=== PATIENT | male | born 1980 | race Caucasian/White ===

== ENCOUNTER 2022-06-23 14:51 | Outpatient (CLI) | payer OTHER, SELFPAY ==
[2022-06-23 18:47] LABS: TSH With Reflex to FT4* 0.783 uIU/mL (0.270-4.200)
== END 2022-06-23 14:52 | disposition home or self-care (01) ==
PROVIDERS: PCP Emergency Medicine; Visit Provider Emergency Medicine
DX: Z00.00 Encounter for general adult medical examination without abnormal findings (principal); R63.4 Abnormal weight loss; E11.9 Type 2 diabetes mellitus without complications
CPT/HCPCS: 84443

== ENCOUNTER 2023-05-11 08:46 | Outpatient (CLI) | payer OTHER, SELFPAY | END 2023-05-11 08:47 | disposition home or self-care (01) | LOC: NFLDREF 22:35 | PROVIDERS: PCP Emergency Medicine; Referring Provider Emergency Medicine; Visit Provider Emergency Medicine | DX: Z00.00 Encounter for general adult medical examination without abnormal findings (principal); E10.9 Type 1 diabetes mellitus without complications | CPT/HCPCS: 80053; 80061; 82043; 82570 ==

== ENCOUNTER 2024-05-09 08:39 | Outpatient (CLI) | payer OTHER, SELFPAY ==
--- OUTSIDE RECORDS SUMMARY | 2024-05-09 08:42 | XMS_ITS | Encounter Summary ---
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
--- OUTSIDE RECORDS SUMMARY | 2024-05-09 08:42 | XMS_ITS | Encounter Summary ---
Author Organization [facility] [employer] [facility] Address [address] [address] Phone Care Team Providers Care Lug Breaker And Wire Puller Name Role Phone Elsewhere, Pcp Primary Care Provider Unavailabl e Encounter Details Date Type Department Care Team (Late st Contact Info) Description 03/07/2024 Scanned - Medical Reports [facility] [address] [place] [id number] Abstract, Provider, Social History Tobacco Use Types Packs/Day Years Used Date Smoking Tobacco: Former Cigarettes Smokeless Tobacco: Never Sex and Gender Information Value Date Recorded Sex Assigned at Not on file 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 Gender Identity Not on file Sexual Orientation Not on file documented as of this encounter Plan of Treatment Not on file documented as of this encounter Procedures Procedure Name Priority Date/Time Associated Diagnosis Comments EYE EXAM ESTABLISHED PATIENT COMPREHENSIVE Routine 03/01/2024 2:17 PM CDT documented in this encounter Results * EYE EXAM ESTABLISHED PATIENT COMPREHENSIVE (03/01/2024 2:17 PM CDT) us Provider Abstract EC PROCEDURES Final Resul t documented in this encounter Visit Diagnoses Not on filedocumented in this encounter Care Teams Lug Breaker And Wire Puller Relationship Specialty Start Date End Date Elsewhere, Pcp PCP - General 03/01/24 documented as of this encounter
--- OUTSIDE RECORDS SUMMARY | 2024-05-09 08:42 | XMS_ITS | Clinical Summary ---
Author Organization [facility] Address [address], [place] [address] Care Team Providers Care Kettle Girl Name Role Phone Allie Guaman PA-C Primary Care Provider [phone] Source Comments You are receiving this document as you are listed as the primary care provider,follow-up provider, or the patient has been referred to you for consultation.This is in compliance with the Medicare and[facility] Hospital[facility] EHR Incentive Program,which states Providers who transition their patient to another setting of careor provider of care or refers their patient to another provider of care shouldprovide summary care record for each transition of care or referral. [facility] Allergies No known active allergies Medications Medication Sig Dispensed Refills Start Date End Date Status hydrOXYzine pamoate (VISTARIL) 25 MG capsuleIndications:I nsomnia, unspecified type 1-2 tabs po qhs prn insomnia 60 Cap 1 06/29/2017 Active Additional Information Patient not taking.Reported on 07/31/2018 Active Problems Problem Noted Date Diagnosed Date Insomnia 06/29/2017 Immunizations Name Administration Dates Next Due Tdap 10/14/2013 Family History Medical History Relation Name Comments High Cholesterol Father No Known Problems Mother No Known Problems Brother 1 No Known Problems Brother 2 No Known Problems Brother 3 Diabetes Brother 4 Type 1. Cancer Maternal Grandmother Not efe e what kind, late 50s. Diabetes Paternal Grandfather Atrial Fib Paternal Grandmother No Known Problems Sister Relation Name Status Comments Father Alive Mother Alive Brother 1 Alive Brother 2 Alive Brother 3 Alive Brother 4 Alive Maternal Grandfather Maternal Grandmother Paternal Grandfather Paternal Grandmother Alive Sister Alive Social History Tobacco Use Types Packs/Day Years Used Date Smoking Tobacco: Never Smokeless Tobacco: Never Alcohol Use Standard Drinks/Week Comments Yes 2 (1 standard drink = 0.6 oz pur e alcohol) 2-3 per week Sex and Gender Information Value Date Recorded Sex Assigned at Not on file Gender Identity Not on file Sexual Orientation Not on file Last Filed Vital Signs Vital Sign Reading Time Taken Comments Blood Pressure 123/75 12/02/2020 9:14 AM CDT Pulse 58 12/02/2020 9:14 AM CDT Temperature 36.6 ??C (97.9 ??F) 12/02/2020 9:14 AM CD T Respiratory Rate 14 12/02/2020 9:14 AM CDT Oxygen Saturation 98% 12/02/2020 9:14 AM CDT Inhaled Oxygen Concentration - - Weight 93.3 kg (205 lb 9.6 oz) 07/31/2018 2:58 P M MANAGER PROPERTY Height 180.3 cm (5' 11) 07/31/2018 2:58 PM MANAGER PROPERTY Body Mass Index 28.68 07/31/2018 2:58 PM MANAGER PROPERTY Plan of Treatment Health Maintenance Due Date Last Done Comments Hep C Screening (Preventive Services) 1982 HepB (1) 2001 Adult Preventive Visit 06/29/2019 06/29/2017 Cholesterol 06/29/2022 06/29/2017, 10/26/2006, 10/03/2006 DTaP/Tdap/Td (2 - Tdap) 10/15/2023 10/14/2013 COVID-19 Vaccine (3 - 2023-2 5 season) 2024 11/20/2020, 10/23/2020 Influenza (#1) 2024 Zoster/Shingles (1 of 2) 2032 HIV Screening (Preventive Services) Completed 06/29/2017 HPV Vaccine Aged Out No longer eligi ble based on patient's age to complete this topic HepA Aged Out No longer eligi ble based on patient's age to complete this topic Hib Aged Out No longer eligi ble based on patient's age to complete this topic IPV (Polio) Aged Out No longer eligi ble based on patient's age to complete this topic Infant RSV Aged Out No longer eligi ble based on patient's age to complete this topic MCV4 Aged Out No longer eligi ble based on patient's age to complete this topic Pneumococcal Aged Out No longer eligi ble based on patient's age to complete this topic Procedures Procedure Name Priority Date/Time Associated Diagnosis Comments HIV 1/2 AG/AB 4TH GEN Routine 06/29/2017 12:16 PM MANAGER PROPERTY Screening for HIV (human immunodeficiency virus) LIPID PANEL & DIRECT LDL (IF NEEDED) Routine 06/29/2017 12:16 PM MANAGER PROPERTY Encounter for screening for lipoid disorders from Last 3 Months or Most Recently Relevant to Health Maintenance Results * HIV 1/2 Ag/Ab 4th Generation (06/29/2017 12:16 PM MANAGER PROPERTY) HIV-1 p24 Ag and HIV-1/HIV-2 Ab Nonreactive Nonreactive PN SOFT 06/29/2017 12:1 6 PM MANAGER PROPERTY 06/29/2017 3:22 PM MANAGER PROPERTY Narrative PN SOFT - 06/29/2017 3:54 PM MANAGER PROPERTY [place] [address] CLIA number [id number] Allie Guaman PA-C LAB_[address] [place] [id number] * (ABNORMAL) Lipid Panel and Direct LDL(If Needed) (06/29/2017 12:16 PM MANAGER PROPERTY) Cholesterol 252(H) 0 - 199 mg/dL PN SOFT Triglycerides 315(H) 4 - 149 mg/dL PN SOFT HDL Cholesterol 49 >39 mg/dL PN SOFT Cholesterol/HDL Ratio Screen 5.1 PN SOFT LDL Calculated 140(H) 19 - 130 mg/dL PN SOFT Non HDL Chol, Calc 203(H) 0 - 130 mg/dL PN SOFT Hours Fasting 3.0 PN SOFT 06/29/2017 12:1 6 PM MANAGER PROPERTY 06/29/2017 2:37 PM MANAGER PROPERTY Narrative PN SOFT - 06/29/2017 4:09 PM MANAGER PROPERTY Performed at [facility] [id number] [place] [address] CLIA number [id number] Allie Guaman PA-C LAB_1 PN SOFT [address] [place] [address] from Last 3 Months or Most Recently Relevant to Health Maintenance Advance Directives * Full Code (Latest Code Status on File) Date Activated Date Inactivated Comments 10/03/2006 9:09 PM 10/08/2006 2:24 PM Care Teams Kettle Girl Relationship Specialty Start Date End Date Allie Guaman PA-C [address] [place] [address] PCP - General Physician Cone Worker 06/01/17
--- OUTSIDE RECORDS SUMMARY | 2024-05-09 08:42 | XMS_ITS | Encounter Summary ---
Author Organization [facility] Address [address] [address] Phone Care Team Providers Care Logistic Specialist Name Role Phone Elsewhere, Pcp Primary Care Provider Unavailabl e Reason for Visit * Reason Comments Refill Request Encounter Details Date Type Department Care Team (Late st Contact Info) Description 04/07/2024 Refill [facility] ENDOCRINOLOGY [address] [phone] Jb Van MD [address] [phone] Refill Request Social History Tobacco Use Types Packs/Day Years Used Date Smoking Tobacco: Former Cigarettes Smokeless Tobacco: Never Sex and Gender Information Value Date Recorded Sex Assigned at Not on file 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 Misc four times a day. Accu-Chek soft click lancets 100 Each 3 04/08/2024 Glucagon (Baqsimi Two Pack) 3 MG/DOSE PowderIndications: Type 1 diabetes mellitus on insulin therapy (HCC) Instill 1 Otis nasally as needed (hypoglycemia ). 2 Each 3 04/08/2024 ketone - urine test (Ketostix) stripIndications:T ype 1 diabetes mellitus on insulin therapy (HCC) Use to test urine for ketones when not feeling well 100 Strip 2 04/08/2024 insulin lispro, 1 Unit Dial, (HumaLOG KwikPen) 100 UNIT/ML pen injectionIndicatio ns:Type 1 diabetes mellitus on insulin therapy (HCC) INJECT PER SLIDING SCALE AT MEAL TIME DIRECTED, MAXIMUM OF 25 UNITS PER DAYStrength: 100 UNIT/ML 15 mL 3 04/08/2024 4 insulin lispro, 1 Unit Dial, (HumaLOG KwikPen) 100 UNIT/ML pen injectionIndicatio ns:Type 1 diabetes mellitus on insulin therapy (HCC) INJECT PER SLIDING SCALE AT MEAL TIME DIRECTED, MAXIMUM OF 25 UNITS PER DAY 15 mL 04/08/2024 4 documented in this encounter Miscellaneous Notes * Addendum Note - Sascha Hong RN - 04/08/2024 9:33 AM CDTAddended by: SASCHA HONG on: 04/08/2024 09:33 AM Modules accepted: Orders * Telephone Encounter - Sascha Hong RN - 04/08/2024 9:26 AM CDT Patient's calling to request refills. documented in this encounter Plan of Treatment Not on file documented as of this encounter Visit Diagnoses Diagnosis Type 1 diabetes mellitus on insulin therapy (HCC) documented in this encounter Discontinued Medications Medication Sig Discontinue Reason Start Date End Da te insulin lispro, 1 Unit Dial, (HumaLOG KwikPen) 100 UNIT/ML pen injectionIndications:Ty pe 1 diabetes mellitus on insulin therapy (HCC) Inject 1 unit per 13 grams of carb plus 1 unit for every 50 points above 150 mg/dL. Up to 25 units per day. 08/08/2023 04/08/2024 Accu-Chek GuideIndications:Type 1 diabetes mellitus on insulin therapy (HCC) Use to check blood sugar 4 times per day Adjustment of dose 03/01/2024 04/08/2024 Blood Glucose Monitoring Suppl (Accu-Chek Guide Me) w/Device Kit USE TO TEST BLOOD GLUCOSE LEVELS FOUR TIMES DAILY. Patient quit taking 07/01/2022 04/08/2024 Continuous Blood Gluc Transmit (Dexcom G6 Transmitter) MiscIndications:Type 1 diabetes mellitus on insulin therapy (HCC) USE 1 DEVICE EVERY 3 MONTHS. Adjustment of dose 09/27/2023 04/08/2024 Continuous Blood Gluc Sensor (Dexcom G6 Sensor) MiscIndications:Type 1 diabetes mellitus on insulin therapy (HCC) 1 DEVICE EVERY TEN DAYS. Adjustment of dose 05/30/2023 04/08/2024 Glucagon (Baqsimi Two Pack) 3 MG/DOSE PowderIndications:Type 1 diabetes mellitus on insulin therapy (HCC) Instill 1 Otis nasally as needed (hypoglycemia). Reorder 07/08/2022 04/08/2024 ketone - urine test (Ketostix) stripIndications:Type 1 diabetes mellitus on insulin therapy (HCC) Use to test urine for ketones when not feeling well Reorder 07/08/2022 04/08/2024 insulin lispro, 1 Unit Dial, (HumaLOG KwikPen) 100 UNIT/ML pen injectionIndications:Ty pe 1 diabetes mellitus on insulin therapy (HCC) INJECT PER SLIDING SCALE AT MEAL TIME DIRECTED, MAXIMUM OF 25 UNITS PER DAY 04/08/2024 04/08/2024 documented as of this encounter Care Teams Logistic Specialist Relationship Specialty Start Date End Date Elsewhere, Pcp PCP - General 03/01/24 documented as of this encounter
--- OUTSIDE RECORDS SUMMARY | 2024-05-09 08:42 | XMS_ITS | Encounter Summary ---
Author Organization [facility] [employer] [facility] Address [address] [address] Phone Care Team Providers Care Conveyor Attendant Name Role Phone Elsewhere, Pcp Primary Care Provider Unavailabl e Reason for Visit * Reason Comments Refill Request Encounter Details Date Type Department Care Team (Late st Contact Info) Description 04/29/2024 Refill [facility] ENDOCRINOLOGY [address] [phone] Jb Van MD [address] [phone] Refill Request Social History Tobacco Use Types Packs/Day Years Used Date Smoking Tobacco: Former Cigarettes Smokeless Tobacco: Never Sex and Gender Information Value Date Recorded Sex Assigned at Not on file 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 Gender Identity Not on file Sexual Orientation Not on file documented as of this encounter Ordered Prescriptions Prescription Sig Dispense Quantity Refills Last Filled Start Date End Date insulin lispro, 1 Unit Dial, (HumaLOG KwikPen) 100 UNIT/ML pen injectionIndicatio ns:Type 1 diabetes mellitus on insulin therapy (HCC) INJECT PER SLIDING SCALE AT MEAL TIME DIRECTED, MAXIMUM OF 25 UNITS PER DAY 15 mL 3 04/29/2024 documented in this encounter Plan of Treatment Not on file documented as of this encounter Visit Diagnoses Diagnosis Type 1 diabetes mellitus on insulin therapy (HCC) documented in this encounter Discontinued Medications Medication Sig Discontinue Reason Start Date End Da te insulin lispro, 1 Unit Dial, (HumaLOG KwikPen) 100 UNIT/ML pen injectionIndications:Typ e 1 diabetes mellitus on insulin therapy (HCC) INJECT PER SLIDING SCALE AT MEAL TIME DIRECTED, MAXIMUM OF 25 UNITS PER DAYStrength: 100 UNIT/ML 04/08/2024 04/29/2024 documented as of this encounter Care Teams Conveyor Attendant Relationship Specialty Start Date End Date Elsewhere, Pcp PCP - General 03/01/24 documented as of this encounter
--- OUTSIDE RECORDS SUMMARY | 2024-05-09 08:42 | XMS_ITS | Clinical Summary ---
Author Organization [facility] Address [address] [address] Phone Care Team Providers Care Corporate Executive Name Role Phone Elsewhere, Pcp Primary Care Provider Unavailabl e Allergies Active Allergy Reactions Criticality Noted Date Comments Wheat Other Low 02/08/2023 Stomach issues Medications Lantus SoloStar 100 UNIT/ML pen injection Inject 15 Units under the skin every evening. 12/22/2022 Active BD Pen Needle Evelyn 2nd Gen 32G X 4 MM MiscIndications :Type 1 diabetes mellitus on insulin therapy ([facility]) USE 1 PEN NEEDLE. TO INJECT INSULIN UP TO 6 TIMES PER DAY. 600 Each 5 07/19/2023 Active Continuous Glucose Sensor (Dexcom G7 Sensor) MiscIndications :Type 1 diabetes mellitus on insulin therapy ([facility]) 1 Device every ten days. 9 Each 3 03/01/2024 Active ketone - urine test (Ketostix) stripIndication s:Type 1 diabetes mellitus on insulin therapy ([facility]) Use to test urine for ketones when not feeling well 100 Strip 2 04/08/2024 Active Glucagon (Baqsimi Two Pack) 3 MG/DOSE PowderIndicatio ns:Type 1 diabetes mellitus on insulin therapy ([facility]) Instill 1 [place] nasally as needed (hypoglycemi a). 2 Each 3 04/08/2024 Active Lancets Misc. Misc four times a day. Accu-Chek soft click lancets 100 Each 3 04/08/2024 Active glucose blood test (Glucocard Expression Test) Use to test blood sugars 4 times daily 100 Each 3 04/08/2024 Active insulin lispro, 1 Unit Dial, (HumaLOG KwikPen) 100 UNIT/ML pen injectionIndica tions:Type 1 diabetes mellitus on insulin therapy ([facility]) INJECT PER SLIDING SCALE AT MEAL TIME DIRECTED, MAXIMUM OF 25 UNITS PER DAY 15 mL 3 04/29/2024 Active Active Problems Problem Noted Date Diagnosed Date Type 1 diabetes mellitus on insulin therapy 10/2022 Assessment & Plan (03/01/2024 1:49 PM CDT): Try to get the bolus in 10-15 min before the first bite. No other changes. Consider the pump option for residential. Assessment & Plan (07/20/2023 5:02 PM MUSIC SOUND LIGHT TECHNICIAN): ?? NO CHANGES : ?? follow up with pharmD to discuss omnipod 5 ?? Catch up on the eye exam ?? Get vitamin D3 2000 I.U per day ?? Calcium supp 600 mg / day with supper---- chew or gummy, or solid Assessment & Plan (02/08/2023 12:49 PM CDT): ?? Follow up with Anat to discuss pump options ?? Rotate , radiator pattern, injection sites. ?? Ok to adjust and decrease the lantus as you need to maintain blood sugars overnight and fasting between 70-120 ?? Labs today ?? Overall total rapid acting about the same as total basal insulin ?? Also, the right dose of basal insulin should allow you to not eat for at least 10-12 hours without crashing. Assessment & Plan (08/04/2022 2:00 PM MUSIC SOUND LIGHT TECHNICIAN): ?? If you notice you need more for supper, then consider using 1: 12 ratio, vs 1: 15 for breakfast and lunch ?? May consider dual bolus for heavy protein meals. ?? Consider a lower ratio for correction factor at supper as well.... vs in AM. Morning insulin resistance is worst than even. So, AM correction factor can be lower ( 1: 25), vs 1: 50 at night. ?? Keep in mind what activity you have done, or are planning on after a meal and adjust the dose as needed. ?? Follow up with Pharm D or CDE if you want to proceed with a pump (check into the deductible). Assessment & Plan (07/08/2022 6:00 PM MUSIC SOUND LIGHT TECHNICIAN): Initial visit for diabetes education - 90 minutes total. PharmD CDCES educated on: ?? Pathophysiology of T1D ?? A1c ?? Blood sugar goals ?? Hypoglycemia and proper response. Rx for Baqsimi sent to pharmacy. Pt educated on how to use demo device. ?? Insulin. kinetics of long- vs rapid-acting insulin, administration, storage, rotating injection sites, reviewed current insulin doses ?? General carb counting information: which foods are high in carb, resources for carb counting, has follow-up scheduled with Anat Pitts to discuss more indepth ?? When and how to monitor for ketones. Rx for ketone strips sent to pharmacy. ?? CGM. Provided Personera G6 sample CGM and transmitter. Set up on his phone today. [facility]arity account linked to our clinic's. ?? Brief discussion of insulin pumps, specifically Tandem t:slim X2 and Omnipod 5. ?? Handouts provided: carb counting booklet, T1D [place] folder, JDRF new adult T1D folder Assessment & Plan (07/07/2022 3:46 PM MUSIC SOUND LIGHT TECHNICIAN): ?? Adjust the Lantus insulin so that the AM fasting blood sugars are between 100 - 130. However, only change the dose once every 4 days for lantus. ?? Do not change the dose based on what the blood sugars are at the time of the injection. ?? Adjust based on the AM fasting average . ?? Humalog insulin : Give the dose 10 min before the meal. Adjusted based on the carb amount for that meal, and the premeal blood sugars correction. ?? calorieking christian ?? The goals: Fasting 100-130, Post meal at 2 hours should be < 150 (180 ok). ?? If it is too high, do not correct it. But learn from it. ?? Try to not give extra Humalog within 4 hours of the prior dose. ?? If you must, give 1/2 or 1/3 the correction dose (1 : 50 ) ?? Same for around bedtime corrections. ?? Once you have a pretty good understanding of insulin dosing. ?? DOT form ?? josue syrup for the car ?? Check before driving and cover if needed with some carb + protein. Hyperglycemia due to diabetes mellitus 2 Newly diagnosed diabetes 06/23/2022 Factor 5 Leiden mutation, heterozygous Encounters Date Type Department Care Team Description 04/29/2024 Refill [facility] [address] [place] [address] [address] [place] [phone] Jb Van MD Refill Request 04/07/2024 Refill [facility] ENDOCRIN[facility] [address] [place] [address] [address] [place] [phone] Jb Van MD Refill Request 03/07/2024 Scanned - Medical Reports [address] [phone] Abstract, ProviderMD 03/01/2024 1:30 PM CDT Office Visit [facility] END[facility] [address] [place] [address] Isa [place] [phone] Jb Van MD Type 1 diabetes mellitus on insulin therapy (HCC) (Primary Dx) 03/01/2024 Travel 02/16/2024 4:30 PM CDT ALLIED HEALTH/NURSE VISIT [facility] [address] [place] [address] Isa [place]RON[place] [phone] Lab, [facility] Lab Work 02/16/2024 Travel 02/12/2024 Refill [facility] [address] [place] [address] Isa ALEJORONALD [phone] Charsima Zazueta, RN Refill Request from Last 3 Months Immunizations Name Administration Dates Next Due COVID-19 mRNA Vaccine (Moder na - 18+ Yrs) 05/25/2021,11/20/2020,10/23/2020 DPT <7 years (Historic) 12/07/1988,03/18,05/16/1983,1982,01/13/1983 Hib PRP OMP (PedvaxHib) 04/17/1986 Influenza Quad Preservative Free 04/29/2023,05/04 MMR 12/25/1995,01/13/1984 OPV (Historic Use Only) 12/07/1988,03/18,03/17/1983,1982 TD >7yrs With Preservative 12/25/1995 Tdap (7 years and older) 05/11/2023 Surgical History Surgery Date Site/Laterality Comments APPENDECTOMY Medical History Medical History Date Comments Diabetes (HCC) Clotting disorder (HCC) factor 5 Factor 5 Leiden mutation, heterozygous (HCC) Family History Medical History Relation Comments Clotting disorder Brother Clotting disorder Mother Clotting disorder Sister Relation Status Comments Brother Mother Sister Social History Tobacco Use Types Packs/Day Years Used Date Smoking Tobacco: Former Cigarettes Smokeless Tobacco: Never Tobacco Cessation:Counseling Given: Not Answered Sex and Gender Information Value Date Recorded Sex Assigned at Not on file Legal Sex Male 2:42 PM MUSIC SOUND LIGHT TECHNICIAN Gender Identity Not on file Sexual Orientation Not on file Obstetrics History Last Filed Vital Signs Vital Sign Reading Time Taken Comments Blood Pressure 118/66 03/01/2024 1:18 PM CDT Pulse 77 03/01/2024 1:18 PM CDT Temperature - - Respiratory Rate - - Oxygen Saturation 96% 03/01/2024 1:18 PM CDT Inhaled Oxygen Concentration - - Weight 89.8 kg (198 lb) 03/01/2024 1:18 PM CDT Height 180.3 cm (5' 11) 07/20/2023 4:03 PM MUSIC SOUND LIGHT TECHNICIAN Body Mass Index 27.62 07/20/2023 4:03 PM MUSIC SOUND LIGHT TECHNICIAN Plan of Treatment Health Maintenance Due Date Last Done Comments Hepatitis B Vaccine (Standing Order) (1 of 3 - 19+ 3-dose series) 2001 COVID-19 Vaccine (2023- season) 2024 05/25/2021, 11/20/2020, 10/23/2020 Influenza Vaccine Seasonal (Standing Order) (#1) 2024 04/29/2023, 05/25/2021 DIABETES HGB A1C Q6 MONTHS (Standing Order) 08/18/2024 02/16/2024, 07/17/2023, 02/08/2023, Additional history exists DIABETES MICROALBUMIN Q1 YEAR (Standing Order) 01/16/2025 02/16/2024, 09/26/2022 DIABETIC EYE EXAM 01/30/2025 03/01/2024, 07/18/2022 DIABETES SERUM CREATININE Q1 YEAR (Standing Order) 02/15/2025 02/16/2024, 07/17/2023, 02/08/2023, Additional history exists DIABETES LIPID PROFILE Q5 YEARS (Standing Order) 02/15/2029 02/16/2024, 02/08/2023 TETANUS (Standing Order) 05/11/2033 023, 12/25/1995, 12/07/1988, Additional history exists PERTUSSIS (Standing Order) Completed 05/11, 12/07/1988, 03/18/1985, Additional history exists HPV Vaccine (Standing Order) Aged Out No longer eligible based on patient's age to complete this topic Pneumococcal/PCV20 Vaccine: Pediatrics (2-5 yrs) and At-Risk Patients (6-64 yrs) (Standing Order) Aged Out No longer eligible based on patient's age to complete this topic Procedures Procedure Name Priority Date/Time Associated Diagnosis Comments EYE EXAM ESTABLISHED PATIENT COMPREHENSIVE Routine 03/01/2024 2:17 PM CDT HEMOGLOBIN A1C Routine 02/16/2024 4:11 PM CDT Type 1 diabetes mellitus on insulin therapy (HCC) MICROALBUMIN/CREATININ E RATIO, URINE Routine 02/16/2024 4:11 PM CDT Type 1 diabetes mellitus on insulin therapy (HCC) THYROID STIMULATING HORMONE Routine 02/16/2024 4:11 PM CDT Type 1 diabetes mellitus on insulin therapy (HCC) LIPID PROFILE Routine 02/16/2024 4:11 PM CDT Type 1 diabetes mellitus on insulin therapy ([facility]CC) COMPREHENSIVE METABOLIC PANEL Routine 02/16/2024 4:11 PM CDT Type 1 diabetes mellitus on insulin therapy (HCC) from Last 3 Months Results * EYE EXAM ESTABLISHED PATIENT COMPREHENSIVE (03/01/2024 2:17 PM CDT) us Provider Abstract MD RUSSELL PROCEDURES Final Resul t * (ABNORMAL) COMPREHENSIVE METABOLIC PANEL (02/16/2024 4:11 PM CDT) Sodium 138 135 - 144 mmol/L 02/16/2024 4:44 PM CDT [facility] Potassium 4.1 3.4 - 5.1 mmol/L 02/16/2024 4:44 PM CDT [facility] Chloride 103 98 - 107 mmol/L 02/16/2024 4:44 PM CDT [facility] Carbon Dioxide 30 22 - 30 mmol/L 02/16/2024 4:44 PM CDT [facility] Calcium 9.1 8.6 - 10.3 mg/dL 02/16/2024 4:44 PM CDT [facility] Alkaline Phosphatase 29(L) 38 - 126 U/L 02/16/2024 4:44 PM CDT [facility] Aspartate Aminotransferase 29 17 - 59 U/L 02/16/2024 4:44 PM CDT [facility] Alanine Aminotransferase 21 <50 U/L 02/16/2024 4:44 PM CDT [facility] Glucose 87 74 - 100 mg/dL 02/16/2024 4:44 PM CDT [facility] Blood Urea nitrogen 23(H) 9 - 20 mg/dL 02/16/2024 4:44 PM CDT [facility] Creatinine 1.13 0.66 - 1.25 mg/dL 02/16/2024 4:44 PM CDT [facility] Protein, Total 7.6 6.3 - 8.2 g/dL 02/16/2024 4:44 PM CDT [facility] Albumin 4.7 3.5 - 5.0 g/dL 02/16/2024 4:44 PM CDT [facility] Bilirubin, Total 0.7 0.2 - 1.3 mg/dL 02/16/2024 4:44 PM CDT [facility] Globulin 2.9 1.4 - 4.8 g/dL 02/16/2024 4:44 PM CDT [facility] Anion Gap 5 5 - 15 mmol/L 02/16/2024 4:44 PM T [facility] Glomerular Filtration Rate >60 >60 mL/min/1. 73 m*2 02/16/2024 4:44 PM CDT [facility] Comment:This calculation use s CKD-EPI 2020 equation; it has not been validated in women. Blood BLOOD SPECIMEN / Unknown Venipuncture / Unknown 02/16/2024 4:11 PM CDT 02/16/2024 4:11 PM CDT Jb Van MD EC CHEMISTRY ORDERABLES Final Result Performing Organization Address [facility] Co de Phone Number [facility] [address] [place] [address], [facility] [[email or web address]] [phone] * MICROALBUMIN/CREATININE RATIO, URINE (02/16/2024 4:11 PM CDT) Urine Creatinine, Random 75.0 No Established Reference Range mg/dL 02/17/2024 12:01 AM [facility] Urine Microalbumin <6.0 <=16.7 mg/L 02/17/2024 12:01 AM [facility] Urine Microalbumin/Cre atinine Ratio 02/17/2024 12:01 AM [facility] Comment:MALB/CREAT Urine rat io not calculated due to urine microalbumin and/or urine creatinine result(s) are outside of the linearity of the instrument. Urine VOIDED URINE SPECIMEN / Unknown Non-blood collection / Unknown 02/16/2024 4:11 PM CDT 02/16/2024 4:11 PM CDT Jb Van MD EC URINE ORDERABLES Final Res ult Performing Organization Address City/[facility]/ZIP Co de Phone Number [facility] [address] [place] [address], [facility] [[email or web address]] [phone] * HEMOGLOBIN A1C (02/16/2024 4:11 PM CDT) Pathologist [facility] Hemoglobin A1C 5.6 4.8 - 5.6 % 02/16/2024 4:33 PM CDT [facility] Blood BLOOD SPECIMEN / Unknown Venipuncture / Unknown 02/16/2024 4:11 PM CDT 02/16/2024 4:11 PM CDT Narrative [facility] - 02/16/2024 4:33 PM CDT 5.7-6.4%: ??Increased risk for diabetes 6.5% or higher: ??Diagnostic for diabetes For diabetic patients, A1C goals should be discussed with clinician. Jb Van MD EC CHEMISTRY ORDERABLES ABN F inal Result Performing Organization Address [facility] de Phone Number [facility] [address] [place] [address] * THYROID STIMULATING HORMONE (02/16/2024 4:11 PM CDT) [facility] Thyroid Stimulating hormone 0.97 0.47 - 4.68 mIU/L 02/16/2024 5:13 PM CDT [facility] Blood BLOOD SPECIMEN / Unknown Venipuncture / Unknown 02/16/2024 4:11 PM CDT 02/16/2024 4:11 PM CDT Jb Van MD EC CHEMISTRY ORDERABLES ABN F inal Result Performing Organization Address [facility] Phone Number [facility] [address] [place] [address] * (ABNORMAL) LIPID PANEL (02/16/2024 4:11 PM CDT) [facility] Cholesterol 217(H) 100 - 200 mg/dL 02/16/2024 11:17 PM CDT [facility] Triglycerides 133 <150 mg/dL 02/16/2024 11:17 PM CDT [facility] HDL Cholesterol, Measured 63(H) 35 - 60 mg/dL 02/16/2024 11:17 PM CDT [facility] Non-HDL Cholesterol 154(H) <130 mg/dL 02/16/2024 11:17 PM CDT [facility] LDL Cholesterol, Calculated 127 <130 mg/dL 02/16/2024 11:17 PM CDT [facility] Blood BLOOD SPECIMEN / Unknown Venipuncture / Unknown 02/16/2024 4:11 PM CDT 02/16/2024 4:11 PM CDT Narrative [facility] - 02/16/2024 11:17 PM CDT Cholesterol Reference Ranges (Adults >20 years) ??Desirable: ? <200 mg/dL ??Borderline High: 200-239 mg/dL ??High Risk: ? >240 mg/dL Cholesterol Reference Ranges (Children <20 years) ??Desirable: ? <169 mg/dL ??Borderline High: 170-199 md/dL ??High Risk: ? >200 mg/dL Triglyceride Reference Ranges ??Desirable: ? <150 mg/dL ??Borderline High: 150-199 mg/dL ??High Risk: ? >200 mg/dL NON-HDL Reference Ranges ??Desirable: < ? 130 mg/dL ??Near Desirable: ??130-159 mg/dL ??Borderline High: 160-189 mg/dL ??High Risk: ? 190-219 mg/dL ??Very high Risk: ??>/=220 mg/dL us Jb Van MD EC CHEMISTRY ORDERABLES ABN F inal Result [facility] [address] [place] [address], [facility] [[email or web address]] [phone] from Last 3 Months Insurance Care Teams Corporate Executive Relationship Specialty Start Date End Date Elsewhere, Pcp PCP - General 03/01/24
--- OUTSIDE RECORDS SUMMARY | 2024-05-09 08:43 | XMS_ITS | Encounter Summary ---
Author Organization [facility] Address [address] [address] Phone Care Team Providers Care Chief Technician Name Role Phone Elsewhere, Pcp Primary Care Provider Unavailabl e Reason for Visit * Reason Comments Diabetes Type 1 Encounter Details Date Type Department Care Team (Late st Contact Info) Description 03/01/2024 1:30 PM CDT Office Visit [facility] [address] [phone] Jb Van MD 111 [facility] [address] [place] [id number] Type 1 diabetes mellitus on insulin therapy (HCC) (Primary Dx) Social History Tobacco Use Types Packs/Day Years Used Date Smoking Tobacco: Former Cigarettes Smokeless Tobacco: Never Tobacco Cessation:Counseling Given: Not Answered Sex and Gender Information Value Date Recorded Sex Assigned at Not on file Legal Sex Male 2:42 PM KETTLE GIRL Gender Identity Not on file Sexual Orientation Not on file documented as of this encounter Last Filed Vital Signs Vital Sign Reading Time Taken Comments Blood Pressure 118/66 03/01/2024 1:18 PM CDT Pulse 77 03/01/2024 1:18 PM CDT Temperature - - Respiratory Rate - - Oxygen Saturation 96% 03/01/2024 1:18 PM CDT Inhaled Oxygen Concentration - - Weight 89.8 kg (198 lb) 03/01/2024 1:18 PM CDT Height - - Body Mass Index 27.62 07/20/2023 4:03 PM KETTLE GIRL documented in this encounter Patient Instructions * Patient Instructions* Jb Van MD - 03/01/2024 1:30 PM CDT 1. Type 1 diabetes mellitus on insulin therapy (HCC) (Primary) Assessment & Plan: Try to get the bolus in 10-15 min before the first bite. No other changes. Consider the pump option for custodial. Orders: - Continuous Glucose Sensor (Dexcom G7 Sensor) Misc; 1 Device every ten days. - Accu-Chek Guide; Use to check blood sugar 4 times per day If your provider has ordered a radiology test that needs to be scheduled at any of the [place] facilities, for your convenience and to offer you the best service, we ask that you contact the [facility] directly at [phone]. If you have an Ultrasound or DEXA order from [facility], those are performed directly by them. Please call [phone] ([employer]) or [phone] ([place]) to schedule those tests. documented in this encounter Ordered Prescriptions Prescription Sig Dispense Quantity Refills Last Filled Start Date End Date Continuous Glucose Sensor (Dexcom G7 Sensor) MiscIndications:Ty pe 1 diabetes mellitus on insulin therapy (HCC) 1 Device every ten days. 9 Each 3 03/01/2024 Accu-Chek GuideIndications:T ype 1 diabetes mellitus on insulin therapy (HCC) Use to check blood sugar 4 times per day 400 Each 2 03/01/2024 04/08/2024 documented in this encounter Progress Notes * Jb Van MD - 03/01/2024 1:30 PM CDT Images from the original note were not included. [facility] DOS: 03/01/24 , 1:25 PM Referring Provider: No ref. provider found PCP: Pcp Elsewhere FINAL ASSESSMENT, PLAN and RECOMMENDATIONS: Assessment & Plan Type 1 diabetes mellitus on insulin therapy (HCC) Try to get the bolus in 10-15 min before the first bite. No other changes. 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 he does use a CGM device, [employer] G7 Personal Blood glucose data from a continuous glucose monitor (CGM) device, was downloaded for the past two weeks. The two week data was reviewed and recommendations noted below. The data shows: Hyperglycemia : related to carbohydrate intake, either due to excess intake, or inaccurate carb counting. Hypoglycemia : occasional lows due to sensor error, or post exercise Accuracy of the BGM sensor was validated with FSBG, and calibration as indicated. Current doses of diabetes meds: Lantus weekends 11 units, other days 15 units. Novolog 1: 13, CF 50 Diabetes Control and Complications: Glycemic Control Lab Results Component Value Date HGA1C 5.6 02/16/2024 B.P. Control BP Readings from Last 1 Encounters: 03/01/24 118/66 Statin Yes Lipid control Lab Results Component Value Date CHOL 217 02/16/2024 Lab Results Component Value Date TRIG 133 02/16/2024 Lab Results Component Value Date HDL 63 02/16/2024 Lab Results Component Value Date LDLC 127 02/16/2024 Renal Status Lab Results Component Value Date ALBCR 02/16/2024 Comment: MALB/CREAT Urine ratio not calculated due to urine microalbumin and/or urine creatinine result(s) are outside of the linearity of the instrument. No results found for: UACR Lab Results Component Value Date CREAT 1.13 02/16/2024 Lab Results Component Value Date GFR >60 02/16/2024 Neuropathy No Retinopathy No Last exam: today Smoking Status non-smoker ASA No Current Meds: Current Outpatient Medications Medication Sig Dispense Refill Accu-Chek Guide Use to check blood sugar 4 times per day 400 Each 2 Continuous Blood Gluc Transmit (Dexcom G6 Transmitter) Misc USE 1 DEVICE EVERY 3 MONTHS. 1 Each 32 insulin lispro, 1 Unit Dial, (HumaLOG KwikPen) 100 UNIT/ML pen injection Inject 1 unit per 13 gramsof carb plus 1 unit for every 50 points above 150 mg/dL. Up to 25 units per day. 30 mL 1 BD Pen Needle Evelyn 2nd Gen 32G X 4 MM Misc USE 1 PEN NEEDLE. TO INJECT INSULIN UP TO 6 TIMES PER DAY. 600 Each 5 Continuous Blood Gluc Sensor (Dexcom G6 Sensor) Misc 1 DEVICE EVERY TEN DAYS. 3 Each 11 Lantus SoloStar 100 UNIT/ML pen injection Inject 15 Units under the skin every evening. Glucagon (Baqsimi Two Pack) 3 MG/DOSE Powder Instill 1 [place] nasally as needed (hypoglycemia). 2 Each 3 ketone - urine test (Ketostix) strip Use to test urine for ketones when not feeling well 100 Strip 2 Blood Glucose Monitoring Suppl (Accu-Chek Guide Me) w/Device Kit USE TO TEST BLOOD GLUCOSE LEVELS FOUR TIMES DAILY. No current facility-administered medications for this visit. The following portions of the chart were reviewed this encounter and updated as appropriate: PMHx, Med list, Shx, Surg Hx, Prob List. REVIEW OF SYSTEMS All other ROS are negative, except for pertinent positives and negatives noted in HPI. Labs/ scans : Reviewed OBJECTIVE: Vitals: 03/01/24 1318 BP: 118/66 Pulse: 77 Weight: 89.8 kg (198 lb) SpO2: 96% General Appearance: Alert, cooperative, no distress, appears stated age Head: Normocephalic, without obvious abnormality, atraumatic Eyes: PERRL, conjunctiva/corneas clear, EOM's intact, fundi benign, both eyes Thyroid: Normal size and texture. No nodules, or bruit. Neck: Supple, symmetrical, trachea midline, no adenopathy; thyroid: No enlargement/tenderness/nodules; no carotid bruit or JVD Back: Symmetric, no curvature, ROM normal, no CVA tenderness Lungs: Clear to auscultation bilaterally, respirations unlabored Heart: Regular rate and rhythm, S1 and S2 normal, no murmur, rub or gallop Abdomen: Soft, non-tender, bowel sounds active all four quadrants, no masses, no organomegaly Genitalia: NA Rectal: NA Extremities: Extremities normal, atraumatic, no cyanosis or edema Pulses: 2+ and symmetric all extremities Skin: Skin color, texture, turgor normal, no rashes or lesions Lymph nodes: NA Neurologic: Alert, no tremor, nl DTR FOOT: normal DP and PT pulses, no trophic changes or ulcerative lesions, and normal sensory exam Current Diabetes status: D5 measures: BP < 140/90: Meeting Taking Statin: NOT Meeting A1C < 8.0: Meeting No Tobacco: Meeting If IVD, taking ASA: Meeting ASSESSMENT and PLAN: SEE ABOVE Follow-Up Plans: No follow-ups on file. Clinical nursing note: Jb Van MD Endocrinology, [facility] documented in this encounter Miscellaneous Notes * Assessment & Plan Note - Jb Van MD - 03/01/2024 1:30 PM CDT Associated Problem(s): Type 1 diabetes mellitus on insulin therapy (HCC) Try to get the bolus in 10-15 min before the first bite. No other changes. Consider the pump option for custodial. documented in this encounter Plan of Treatment Not on file documented as of this encounter Visit Diagnoses Diagnosis Type 1 diabetes mellitus on insulin therapy (HCC)- Primary documented in this encounter Discontinued Medications Medication Sig Discontinue Reason Start Date End Da te Accu-Chek GuideIndications:Type 1 diabetes mellitus on insulin therapy (HCC) Use to check blood sugar 4 times per day Reorder 02/12/2024 03/01/2024 documented as of this encounter Care Teams Chief Technician Relationship Specialty Start Date End Date Elsewhere, Pcp PCP - General 03/01/24 documented as of this encounter
--- OUTSIDE RECORDS SUMMARY | 2024-05-09 08:43 | XMS_ITS | Encounter Summary ---
Author Organization [employer] [facility] Address [address] [address] Phone Care Team Providers Care Suction Plate Carrier Cleaner Name Role Phone Unavailable Primary Care Provider Unavailabl e Reason for Visit * Reason Comments Lab Work Encounter Details Date Type Department Care Team (Late st Contact Info) Description 02/16/2024 4:30 PM CDT ALLIED HEALTH/NURSE VISIT 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 Gender Identity Not on file Sexual Orientation Not on file documented as of this encounter Plan of Treatment Not on file documented as of this encounter Procedures Procedure Name Priority Date/Time Associated Diagnosis Comments COMPREHENSIVE METABOLIC PANEL Routine 02/16/2024 4:11 PM CDT Type 1 diabetes mellitus on insulin therapy (HCC) MICROALBUMIN/CREATININ E RATIO, URINE Routine 02/16/2024 4:11 PM CDT Type 1 diabetes mellitus on insulin therapy (HCC) HEMOGLOBIN A1C Routine 02/16/2024 4:11 PM CDT Type 1 diabetes mellitus on insulin therapy (HCC) THYROID STIMULATING HORMONE Routine 02/16/2024 4:11 PM CDT Type 1 diabetes mellitus on insulin therapy (HCC) LIPID PROFILE Routine 02/16/2024 4:11 PM CDT Type 1 diabetes mellitus on insulin therapy (HCC) documented in this encounter Results * HEMOGLOBIN A1C (02/16/2024 4:11 PM CDT) Hemoglobin A1C 5.6 4.8 - 5.6 % 02/16/2024 4:33 PM CDT [facility] Blood BLOOD SPECIMEN / Unknown Venipuncture / Unknown 02/16/2024 4:11 PM CDT 02/16/2024 4:11 PM CDT Narrative [facility] - 02/16/2024 4:33 PM CDT 5.7-6.4%: ??Increased risk for diabetes 6.5% or higher: ??Diagnostic for diabetes For diabetic patients, A1C goals should be discussed with clinician. us Jb Van MD EC CHEMISTRY ORDERABLES ABN F inal Result [address] [phone] * MICROALBUMIN/CREATININE RATIO, URINE (02/16/2024 4:11 PM CDT) Urine Creatinine, Random 75.0 No Established Reference Range mg/dL 02/17/2024 12:01 AM T [facility] Urine Microalbumin <6.0 <=16.7 mg/L 02/17/2024 12:01 AM [facility] Urine Microalbumin/Cre atinine Ratio 02/17/2024 12:01 AM [facility] Comment:MALB/CREAT Urine rat io not calculated due to urine microalbumin and/or urine creatinine result(s) are outside of the linearity of the instrument. Urine VOIDED URINE SPECIMEN / Unknown Non-blood collection / Unknown 02/16/2024 4:11 PM CDT 02/16/2024 4:11 PM CDT Jb Van MD EC URINE ORDERABLES Final Res ult Performing Organization Address City/[facility]/ZIP Co de Phone Number [facility] [address] [phone] * THYROID STIMULATING HORMONE (02/16/2024 4:11 PM CDT) Thyroid Stimulating hormone 0.97 0.47 - 4.68 mIU/L 02/16/2024 5:13 PM CDT [facility] Blood BLOOD SPECIMEN / Unknown Venipuncture / Unknown 02/16/2024 4:11 PM CDT 02/16/2024 4:11 PM CDT Jb Van MD EC CHEMISTRY ORDERABLES ABN F inal Result Performing Organization Address City/[facility]/ZIP Co de Phone Number [facility] [address] [place] [address] * (ABNORMAL) LIPID PANEL (02/16/2024 4:11 PM CDT) Cholesterol 217(H) 100 - 200 mg/dL 02/16/2024 11:17 PM CDT [facility] Triglycerides 133 <150 mg/dL 02/16/2024 11:17 PM CDT [facility] HDL Cholesterol, Measured 63(H) 35 - 60 mg/dL 02/16/2024 11:17 PM CDT [facility] Non-HDL Cholesterol 154(H) <130 mg/dL 02/16/2024 11:17 PM CDT [facility] LDL Cholesterol, Calculated 127 <130 mg/dL 02/16/2024 11:17 PM CDT [facility] Blood BLOOD SPECIMEN / Unknown Venipuncture / Unknown 02/16/2024 4:11 PM CDT 02/16/2024 4:11 PM CDT Narrative [facility] - 02/16/2024 11:17 PM CDT [...] EC CHEMISTRY ORDERABLES ABN F inal Result [facility] [address] [place] [address], [facility] [phone] * (ABNORMAL) COMPREHENSIVE METABOLIC PANEL (02/16/2024 4:11 PM CDT) Sodium 138 135 - 144 mmol/L 02/16/2024 4:44 PM CDT [facility] Potassium 4.1 3.4 - 5.1 mmol/L 02/16/2024 4:44 PM CDT [facility] Chloride 103 98 - 107 mmol/L 02/16/2024 4:44 PM CDT [facility] Carbon Dioxide 30 22 - 30 mmol/L 02/16/2024 4:44 PM CDT [facility] Calcium 9.1 8.6 - 10.3 mg/dL 02/16/2024 4:44 PM CDT [facility] Alkaline Phosphatase 29(L) 38 - 126 U/L 02/16/2024 4:44 PM T [facility] Aspartate Aminotransferase 29 17 - 59 U/L 02/16/2024 4:44 PM T [facility] Alanine Aminotransferase 21 <50 U/L 02/16/2024 4:44 PM [facility] Glucose 87 74 - 100 mg/dL 02/16/2024 4:44 PM [facility] Blood Urea nitrogen 23(H) 9 - 20 mg/dL 02/16/2024 4:44 PM T [facility] Creatinine 1.13 0.66 - 1.25 mg/dL 02/16/2024 4:44 PM [facility] Protein, Total 7.6 6.3 - 8.2 g/dL 02/16/2024 4:44 PM [facility] Albumin 4.7 3.5 - 5.0 g/dL 02/16/2024 4:44 PM [facility] Bilirubin, Total 0.7 0.2 - 1.3 mg/dL 02/16/2024 4:44 PM T [facility] Globulin 2.9 1.4 - 4.8 g/dL 02/16/2024 4:44 PM [facility] Anion Gap 5 5 - 15 mmol/L 02/16/2024 4:44 PM [facility] Glomerular Filtration Rate >60 >60 mL/min/1. 73 m*2 02/16/2024 4:44 PM [facility] Comment:This calculation use s CKD-EPI 2020 equation; it has not been validated in women. Blood BLOOD SPECIMEN / Unknown Venipuncture / Unknown 02/16/2024 4:11 PM CDT 02/16/2024 4:11 PM CDT Jb Van MD EC CHEMISTRY ORDERABLES Final Result [facility] [address] [place] [address] documented in this encounter Visit Diagnoses Diagnosis Type 1 diabetes mellitus on insulin therapy (HCC) documented in this encounter
--- OUTSIDE RECORDS SUMMARY | 2024-05-09 08:43 | XMS_ITS | Encounter Summary ---
Author Organization [facility] Address [address] [address] Phone Care Team Providers Care Airborne Operations Manager Name Role Phone Unavailable Primary Care Provider Unavailabl e Reason for Visit * Reason Onset Date Comments Refill Request 02/12/2024 Encounter Details Date Type Department Care Team (Late st Contact Info) Description 02/12/2024 Refill [facility] [address] [place] [phone] Charisma Zazueta RN Refill Request Social History Tobacco Use Types Packs/Day Years Used Date Smoking Tobacco: Former Cigarettes Smokeless Tobacco: Never Sex and Gender Information Value Date Recorded Sex Assigned at Not on file 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 Gender Identity Not on file Sexual Orientation Not on file documented as of this encounter Ordered Prescriptions Prescription Sig Dispense Quantity Refills Last Filled Start Date End Date Accu-Chek GuideIndications:Ty pe 1 diabetes mellitus on insulin therapy (HCC) Use to check blood sugar 4 times per day 400 Each 2 02/12/2024 03/01/2024 documented in this encounter Plan of Treatment Not on file documented as of this encounter Visit Diagnoses Diagnosis Type 1 diabetes mellitus on insulin therapy (HCC)- Primary documented in this encounter Discontinued Medications Medication Sig Discontinue Reason Start Date End Da te Accu-Chek Guide Use to check blood sugar 4 times per day Reorder 07/01/2022 02/12/2024 documented as of this encounter
--- OUTSIDE RECORDS SUMMARY | 2024-05-09 08:43 | XMS_ITS | Continuity of Care Document ---
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 It does not include entries that were removed or entered in error. Substance Category Reaction Severity Reaction type Status Date Reported Comments Source No Known Allergies Drug allergy (disorder) active 11/25/2007 Surinder Hunt [facility] Encounters Combined list of: 1) Encounters from Department of Veterans Affairs facilities going back up to thelast 18 months. 2) Encounters from the Department of Defense facilities going back up to 280 months. Location Location Details Encounter Type Encounter Number Reason For Visit Attending Provider ADM Date DC Date Status Disposition Source [facility] DIRECT TO [facility] FROM OTHER THAN ER OR [facility] [id number] 02/19 RETURNED TO [facility] Procedures Combined list of: 1) Procedures from Department of Veterans Affairs facilities going back up to thelast 18 months, not all [place] non-surgical procedures are included; 2) All procedures from the Department of Defense facilities. Procedure Procedure Type Code Date Perfomer Comments [facility] e IMMUNIZATION ADMINISTRATION (INCLUDES PERCUTANEOUS, INTRADERMAL, SUBCUTANEOUS, OR INTRAMUSCULAR INJECTIONS); 1 VACCINE (SINGLE OR COMBINATION VACCINE/TOXOID) 09/17/2003 [facility] UNLISTED AMBULANCE SERVICE 07/14/2003 [facility] DETERMINATION OF REFRACTIVE STATE 07/11/2003 [facility] SCREENING TEST, PURE TONE, AIR ONLY 07/11/2003 [facility] OTHER COUNSELLING 02/25/2004 [facility] OTHER GROUP THERAPY 02/25/2004 [facility] SUPPORTIVE VERBAL PSYCHOTHERAPY 02/25/2004 [facility] EXPLORATORY VERBAL PSYCHOTHERAPY 02/25/2004 [facility] CRISIS INTERVENTION 02/25/2004 [facility] BEHAVIOR THERAPY 02/25/2004 [facility] OTHER PSYCHIATRIC INTERVIEW AND EVALUATION 02/25/2004 [facility] PSYCHIATRIC MENTAL STATUS DETERMINATION 02/25/2004 [facility] PSYCHOLOGIC MENTAL STATUS DETERMINATION, NOT OTHERWISE SPECIFIED 02/25/2004 [facility] REHABILITATION, NOT ELSEWHER E CLASSIFIED 02/25/2004 [facility] OCCUPATIONAL THERAPY 02/25/2004 [facility] RECREATIONAL THERAPY 02/25/2004 [facility] GENERAL PHYSICAL EXAMINATION 02/25/2004 [facility] NEUROLOGIC EXAMINATION 02/25/2004 [facility] INTERACTIVE GROUP PSYCHOTHERAPY 02/23/2004 [facility] PSYCHIATRIC DIAGNOSTIC INTERVIEW EXAMINATION 02/21/2004 [facility] PSYCHIATRIC DIAGNOSTIC INTERVIEW EXAMINATION 02/20/2004 [facility] INDIVIDUAL PSYCHOTHERAPY, INSIGHT ORIENTED, BEHAVIOR MODIFYING AND/OR SUPPORTIVE, IN AN OFFICE OR OUTPATIENT FACILITY, APPROXIMATELY 20 TO 30 MINUTES [id number] WITH THE PATIENT 02/19/2004 [facility] ENVIRONMENTAL INTERVENTION FOR MEDICAL MGMT PURPOSES ON A PSYCHIATRIC PATIENT'S BEHALF WITH AGENCIES, EMPLOYERS, OR INSTITUTIONS 01/01/2004 [facility] Social History Combined list of available smoking, tobacco, and other social history from Department of Defense and Veterans Affairs facilities. Social History Type Response Date Comment Sourc e This section is an empty social history section. [facility]
--- OUTSIDE RECORDS SUMMARY | 2024-05-09 08:43 | XMS_ITS | Clinical Summary ---
Author Organization [email or web address] [facility] [employer] [facility] [employer] [employer] Address [place], [place] [address] Care Team Providers Care Electrical Power Station Technician Name Role Phone Chiquita Spence MD Primary Care Provider [phone] Allergies No known active allergies Medications Medication Sig Dispensed Refills Start Date End Date Status Blood-Glucose MeterIndications:D iabetes mellitus, new onset (HC) Dispense glucose meter, test strips and lancets covered by the patient insurance. Test 2 times per day. 1 Each 06/23/2022 Active lancetsIndications :Diabetes mellitus, new onset (HC) Dispense item covered by pt ins. Diabetes new onset 200 Each 06/23/2022 Active blood sugar diagnostic (Accu-Chek Guide test strips) stripIndications:D iabetes mellitus, new onset (HC) Dispense item covered by pt ins. New onset diabetes 200 Each 06/23/2022 Active blood sugar diagnostic strip Use to test twice daily as directed 50 Each 06/24/2022 Active lancets (TechLITE Lancets) 28 gauge misc Use to test twice daily as directed 100 Each 06/24/2022 Active blood-glucose meter (Glucocard Expression) Use to test twice daily as directed 1 Each 06/24/2022 Active blood-glucose meterIndications:H yperglycemia,Diabe kip mellitus, new onset (HC) Dispense meter, test strips, lancets covered by pt ins. E11.65 NIDDM type II, uncontrolled - Test 4 times/day. Reason: New diabetes 1 Each 06/24/2022 Active metFORMIN (GLUCOPHAGE) 1,000 mg tabletIndications: Diabetes mellitus, new onset (HC) Take 1 Tablet (1,000 mg) by mouth two times daily with meals. For the first week please take half tablet (500 mg) twice a day. After a week please increase this to 1 tablet twice a day. 60 Tablet 06/24/2022 Active Insulin Girard, Disposable, 32 gauge x Use to administer insulin once daily 100 Each 06/24/2022 Active Active Problems Problem Noted Date Diagnosed Date Newly diagnosed diabetes 06/23/2022 Hyperglycemia due to diabetes mellitus 2 Lumbago 02/05/2008 HEALTH MAINTENANCE Overview (02/07/2008): colonoscopy bone density Last Lipids: Chol: TG: HDL: LDL: GLUCOSE (mg/dL) Date Value 09/28/06 119* Immunizations Name Administration Dates Next Due DTP 12/07/1988, 5,05/16/1983,03/17/1983,01/13/19 83 HIB PRP-OMP (PedvaxHIB) 04/17/1986 MMR 12/25/1995,01/13/1984 Oral Polio Vaccine 12/07/1988,03/18/1985, 983,01/13/1983 Td (Age >=7 Years) 12/25/1995 Family History Medical History Relation Name Comments Diabetes type I Brother Good Health Father Diabetes Maternal Grandfather Good Health Mother Relation Name Status Comments Brother Father Maternal Grandfather Mother Social History Tobacco Use Types Packs/Day Years Used Date Smoking Tobacco: Former Cigarettes 0.5 2 1 07/04/2011 - 05/04/2014 Smokeless Tobacco: Never Tobacco Cessation:Counseling Given: Yes Comments:Quit smoke a 1.5 year 06/03/16 Alcohol Use Standard Drinks/Week Comments Yes 3 (1 standard drink = 0.6 oz pur e alcohol) one a day Social Connections Answer Date Recorded Frequency of Communication with Friends and Fami ly Not on file 10/10/2022 Sex and Gender Information Value Date Recorded Sex Assigned at Not on file Gender Identity Not on file Sexual Orientation Not on file Obstetrics History Last Filed Vital Signs Vital Sign Reading Time Taken Comments Blood Pressure 115/68 06/24/2022 1:25 PM DRILLING RIG OPERATOR Pulse 69 06/24/2022 1:25 PM DRILLING RIG OPERATOR Temperature 36.4 ??C (97.5 ??F) 06/24/2022 1:25 PM CS T Respiratory Rate 17 06/24/2022 1:25 PM DRILLING RIG OPERATOR Oxygen Saturation 98% 06/24/2022 1:25 PM DRILLING RIG OPERATOR Inhaled Oxygen Concentration - - Weight 83.2 kg (183 lb 6.4 oz) 06/24/2022 12:00 AM DRILLING RIG OPERATOR Height 177.8 cm (5' 10) 06/23/2022 6:29 PM DRILLING RIG OPERATOR Body Mass Index 26.32 06/23/2022 6:29 PM DRILLING RIG OPERATOR Plan of Treatment Health Maintenance Due Date Last Done Comments Tdap 1993 HIV for age 15-65 1997 Hepatitis C screening for ag e 18-79 2000 Tetanus booster 12/24/2005 12/25/1995 BMI (ht and wt on same day) for age 18+ 06/03/2017 06/03/2016 Depression screening for age 12+ 06/03/2017 06/03/20 16 COVID-19 vaccine series (2023- season) 2024 Influenza for age 9-49 03/03/2024 Lipids for age 35-44 06/24/2027 06/24/2022 Pneumococcal series for age 6-64 Aged Out No longer eligible based on patient's age to complete this topic Procedures Procedure Name Priority Date/Time Associated Diagnosis Comments LIPID PANEL Early AM 06/24/2022 9:03 AM DRILLING RIG OPERATOR from Last 3 Months or Most Recently Relevant to Health Maintenance Results * (ABNORMAL) LIPID PANEL (06/24/2022 9:03 AM DRILLING RIG OPERATOR) CHOLESTEROL,TOTAL 161 100 - 199 mg/dL 06/24/2022 9:40 AM DRILLING RIG OPERATOR [facility] TRIGLYCERIDES 169(H) <150 mg/dL 06/24/2022 9:40 AM DRILLING RIG OPERATOR [facility] HDL CHOLESTEROL 30(L) >40 mg/dL 9:40 AM DRILLING RIG OPERATOR [facility] NON-HDL CHOLESTEROL 131 <145 mg/dl 06/24/2022 9:40 AM DRILLING RIG OPERATOR [facility] CHOL/HDL RATIO 5.37(H) <4.50 06/24/2022 9:40 AM DRILLING RIG OPERATOR [facility] LDL CHOLESTEROL 97 <=130 mg/dL 06/24/2022 9:40 AM DRILLING RIG OPERATOR [facility] VLDL CHOLESTEROL 34(H) <=30 mg/dL 06/24/2022 9:40 AM DRILLING RIG OPERATOR [facility] PROVIDER ORDERED STATUS RANDOM 06/24/2022 9:40 AM DRILLING RIG OPERATOR [facility] Blood BLOOD SPECIMEN / Unknown Venipuncture / Unknown 06/24/2022 9:03 AM DRILLING RIG OPERATOR 06/24/2022 9:09 AM DRILLING RIG OPERATOR Vishal Jesus MD CHEMISTRY [facility] [address] [place] [address] from Last 3 Months or Most Recently Relevant to Health Maintenance Advance Directives * Full Code (Latest Code Status on File) Date Activated Date Inactivated Comments 06/23/2022 11:31 PM 06/24/2022 5:44 PM Question Answer Comments Code Status Discussion: Reviewed Preferences Care Teams Electrical Power Station Technician Relationship Specialty Start Date End Date [place]iquita Spence [place] [address] [place] [address] PCP - General Emergency Medicine 06/23/22
--- OUTSIDE RECORDS SUMMARY | 2024-05-09 08:43 | XMS_ITS | Encounter Summary ---
Author Organization [facility] Address [address] [address] Phone Care Team Providers Care Computer Engineering Professor Name Role Phone Unavailable Primary Care Provider Unavailabl e Encounter Details Date Type Department Care Team (Latest Contact Info) Description 02/16/2024 Travel Social History Tobacco Use Types Packs/Day Years Used Date Smoking Tobacco: Former Cigarettes Smokeless Tobacco: Never Sex and Gender Information Value Date Recorded Sex Assigned at Not on file Legal Sex Male 2:42 PM INTERVENTIONAL RADIOLOGIST Gender Identity Not on file Sexual Orientation Not on file documented as of this encounter Plan of Treatment Not on file documented as of this encounter Visit Diagnoses Not on filedocumented in this encounter
== END 2024-05-09 08:40 | disposition home or self-care (01) ==
PROVIDERS: PCP Emergency Medicine; Visit Provider Emergency Medicine
DX: E78.5 Hyperlipidemia, unspecified (principal); E10.9 Type 1 diabetes mellitus without complications
CPT/HCPCS: 80048; 80061

== ENCOUNTER 2024-06-07 13:45 | Outpatient (CLI) | payer OTHER, SELFPAY ==
--- OUTSIDE RECORDS SUMMARY | 2024-06-07 13:48 | XMS_ITS | Clinical Summary ---
Author Organization [facility] Address [address] [address] Care Team Providers Care Cigar Head Piercer Name Role Phone Allie Guaman PA-C Primary Care Provider [phone] Source Comments You are receiving this document as you are listed as the primary care provider,follow-up provider, or the patient has been referred to you for consultation.This is in compliance with the Medicare and[facility] EHR Incentive Program,which states Providers who transition their patient to another setting of careor provider of care or refers their patient to another provider of care shouldprovide summary care record for each transition of care or referral. [facility] Allergies No known active allergies Medications Medication [...] 4 Type 1. Cancer Maternal Grandmother Not eef e what kind, late 50s. Diabetes Paternal [...] 60 12/02/2020 9:14 AM CDT Temperature 36.6 C (97.9 F) 12/02/2020 9:14 AM CDT Respiratory Rate 14 12/02/2020 9:14 AM CDT Oxygen Saturation 98% 12/02/2020 9:14 AM CDT Inhaled Oxygen Concentration - - Weight 93.3 kg (205 lb 9.6 oz) 07/31/2018 2:58 P M DIESEL TRAILER MECHANIC Height 180.3 cm (5' 11) 07/31/2018 2:58 PM DIESEL TRAILER MECHANIC Body Mass Index 28.68 07/31/2018 2:58 PM DIESEL TRAILER MECHANIC Plan of Treatment Health Maintenance Due Date [...] on patient's age to complete this topic RSV Aged Out No longer eligi ble based on patient's age to complete this topic MCV4 Aged Out No longer eligi ble based on patient's age to complete this topic Pneumococcal Aged Out No longer eligi ble based on patient's age to complete this topic Procedures Procedure Name Priority Date/Time Associated Diagnosis Comments HIV 1/2 AG/AB 4TH GEN Routine 06/29/2017 12:16 PM DIESEL TRAILER MECHANIC Screening for HIV (human immunodeficiency virus) LIPID PANEL & DIRECT LDL (IF NEEDED) Routine 06/29/2017 12:16 PM DIESEL TRAILER MECHANIC Encounter for screening for lipoid disorders from Last 3 Months or Most Recently Relevant to Health Maintenance Results * HIV 1/2 Ag/Ab 4th Generation (06/29/2017 12:16 PM DIESEL TRAILER MECHANIC) HIV-1 p24 Ag and HIV-1/HIV-2 Ab Nonreactive Nonreactive PN SOFT 06/29/2017 12:1 6 PM DIESEL TRAILER MECHANIC 06/29/2017 3:22 PM DIESEL TRAILER MECHANIC Narrative PN SOFT - 06/29/2017 3:54 PM DIESEL TRAILER MECHANIC [place] [address] CLIA number [id number] Allie Guaman PA-C LAB_[address] [place] [address] * (ABNORMAL) Lipid Panel and Direct LDL(If Needed) (06/29/2017 12:16 PM DIESEL TRAILER MECHANIC) Cholesterol 252(H) 0 - 199 mg/dL PN SOFT Triglycerides 315(H) 4 - 149 mg/dL PN SOFT HDL Cholesterol 49 >39 mg/dL PN SOFT Cholesterol/HDL Ratio Screen 5.1 PN SOFT LDL Calculated 140(H) 19 - 130 mg/dL PN SOFT Non HDL Chol, Calc 203(H) 0 - 130 mg/dL PN SOFT Hours Fasting 3.0 PN SOFT 06/29/2017 12:1 6 PM DIESEL TRAILER MECHANIC 06/29/2017 2:37 PM DIESEL TRAILER MECHANIC Narrative PN SOFT - 06/29/2017 4:09 PM DIESEL TRAILER MECHANIC Performed at [facility] [address] [place] [address] CLIA number [id number] Allie Guaman PA-C LAB_1 PN SOFT [address] [place] [address] from Last 3 Months or Most Recently Relevant to Health Maintenance Advance Directives * Full Code (Latest Code Status on File) Date Activated Date Inactivated Comments 10/03/2006 9:09 PM 10/08/2006 2:24 PM Care Teams Cigar Head Piercer Relationship Specialty Start Date End Date Allie Guaman PA-C [address] [place] [address] PCP - General Physician Collar Tailor 06/01/17
--- OUTSIDE RECORDS SUMMARY | 2024-06-07 13:48 | XMS_ITS | Encounter Summary ---
Author Organization [facility] Address [address] [address] Phone Care Team Providers Care Spinning Bath Person Name Role Phone Elsewhere, Pcp Primary Care Provider Unavailabl e Reason for Visit * Reason Comments Refill Request Encounter Details Date Type Department Care Team (Late st Contact Info) Description 04/29/2024 Refill [facility] ENDOCRINOLOGY [address] [address] Jb Van MD [address] [id number] Refill Request Social History Tobacco Use Types Packs/Day Years Used Date Smoking Tobacco: Former Cigarettes Smokeless Tobacco: Never Sex and Gender Information Value Date Recorded Sex Assigned at Not on file Legal Sex Male 2:42 PM 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
--- OUTSIDE RECORDS SUMMARY | 2024-06-07 13:48 | XMS_ITS | Clinical Summary ---
Author Organization [facility] Address [address] [address] Phone Care Team Providers Care Corporate Lawyer Name Role Phone Elsewhere, Pcp Primary Care Provider Unavailabl e Allergies Active Allergy Reactions Criticality Noted Date Comments Wheat Other Low 02/08/2023 Stomach issues Medications Lantus SoloStar 100 UNIT/ML pen injection Inject 15 Units under the skin every evening. 12/22/2022 Active BD Pen Needle Evelyn 2nd Gen 32G X 4 MM MiscIndications :Type 1 diabetes mellitus on insulin therapy ([facility]) USE 1 PEN NEEDLE. TO INJECT INSULIN UP TO 6 TIMES PER DAY. 600 Each 5 07/19/2023 Active Continuous Glucose Sensor (Dexcom G7 Sensor) MiscIndications :Type 1 diabetes mellitus on insulin therapy ([facility]) 1 Device every ten days. 9 Each 3 03/01/2024 Active ketone - urine test (Ketostix) stripIndication s:Type 1 diabetes mellitus on insulin therapy ([facility]) Use to test urine for ketones when not feeling well 100 Strip 2 04/08/2024 Active Glucagon (Baqsimi Two Pack) 3 MG/DOSE PowderIndicatio ns:Type 1 diabetes mellitus on insulin therapy ([facility]) Instill 1 [place] nasally as needed (hypoglycemi a). 2 Each [...] other changes. Consider the pump option for [facility]. Assessment & Plan (07/20/2023 5:02 PM CPO): NO CHANGES : follow up with pharmD to discuss omnipod 5 Catch up on the eye exam Get vitamin D3 2000 I.U per day Calcium supp 600 mg / day with supper---- chew or gummy, or solid Assessment & Plan (02/08/2023 12:49 PM CDT): Follow up with Anat to discuss pump options Rotate , radiator pattern, injection sites. Ok to adjust and decrease the lantus as you need to maintain blood sugars overnight and fasting between 70-120 Labs today Overall total rapid acting about the same as total basal insulin Also, the right dose of basal insulin should allow you to not eat for at least 10-12 hours without crashing. Assessment & Plan (08/04/2022 2:00 PM CPO): If you notice you need more for supper, then consider using 1: 12 ratio, vs 1: 15 for breakfast and lunch May consider dual bolus for heavy protein meals. Consider a lower ratio for correction factor at supper as well.... vs in AM. Morning insulin resistance is worst than even. So, AM correction factor can be lower ( 1: 25), vs 1: 50 at night. Keep in mind what activity you have done, or are planning on after a meal and adjust the dose as needed. Follow up with Pharm D or CDE if you want to proceed with a pump (check into the deductible). Assessment & Plan (07/08/2022 6:00 PM CPO): Initial visit for diabetes education - 90 minutes total. PharmD CDCES educated on: Pathophysiology of T1D A1c Blood sugar goals Hypoglycemia and proper response. Rx for Baqsimi sent to pharmacy. Pt educated on how to use demo device. Insulin. kinetics of long- vs rapid-acting insulin, administration, storage, rotating injection sites, reviewed current insulin doses General carb counting information: which foods are high in carb, resources for carb counting, has follow-up scheduled with Anat Pitts to discuss more indepth When and how to monitor for ketones. Rx for ketone strips sent to pharmacy. CGM. Provided Scoutzie G6 sample CGM and transmitter. Set up on his phone today. Clarity account linked to our clinic's. Brief discussion of insulin pumps, specifically Tandem t:slim X2 and Omnipod 5. Handouts provided: carb counting booklet, T1D [place] folder, JDRF new adult T1D folder Assessment & Plan (07/07/2022 3:46 PM CPO): Adjust the Lantus insulin so that the AM fasting blood sugars are between 100 - 130. However, only change the dose once every 4 days for lantus. Do not change the dose based on what the blood sugars are at the time of the injection. Adjust based on the AM fasting average . Humalog insulin : Give the dose 10 min before the meal. Adjusted based on the carb amount for that meal, and the premeal blood sugars correction. calorieking christian The goals: Fasting 100-130, Post meal at 2 hours should be < 150 (180 ok). If it is too high, do not correct it. But learn from it. Try to not give extra Humalog within 4 hours of the prior dose. If you must, give 1/2 or 1/3 the correction dose (1 : 50 ) Same for around bedtime corrections. Once you have a pretty good understanding of insulin dosing. DOT form josue syrup for the car Check before driving and cover if needed with some carb + protein. Hyperglycemia due to diabetes mellitus 2 Newly diagnosed diabetes 06/23/2022 Factor 5 Leiden mutation, heterozygous Encounters Date Type Department Care Team Description 04/29/2024 Refill [facility] ENDOCRINOLOGY [address] [facility] [address] [place] [address] Jb Van MD Refill Request 04/07/2024 Refill [facility] ENDOCRINOLOGY [address] [facility] [address] [place] [address] Jb Van MD Refill Request from Last 3 Months Immunizations [...] on file Legal Sex Male 2:42 PM CPO Gender Identity Not on file Sexual Orientation [...] 180.3 cm (5' 11) 07/20/2023 4:03 PM CPO Body Mass Index 27.62 07/20/2023 4:03 PM CPO Plan of Treatment Health Maintenance Due Date Last Done Comments Hepatitis B Vaccine (Standing Order) (1 of 3 - 19+ 3-dose series) 2001 COVID-19 Vaccine ( season) 2024 05/25/2021, 11/20/2020, 10/23/2020 Influenza Vaccine [...] Procedure Name Priority Date/Time Associated Diagnosis Comments HEMOGLOBIN A1C Routine 02/16/2024 4:11 PM CDT [...] insulin therapy (HCC) from Last 3 Months or Most Recently Relevant to Health Maintenance Results * (ABNORMAL) COMPREHENSIVE METABOLIC PANEL (02/16/2024 4:11 PM CDT) Sodium 138 135 - 144 mmol/L 02/16/2024 4:44 PM CDT [facility] Potassium 4.1 3.4 - 5.1 mmol/L 02/16/2024 4:44 PM CDT [facility] Chloride 103 98 - 107 mmol/L 02/16/2024 4:44 PM CDT [facility] Carbon Dioxide 30 22 - 30 mmol/L 02/16/2024 4:44 PM CDT [facility] Calcium 9.1 8.6 - 10.3 mg/dL 02/16/2024 4:44 PM CDT [facility] Alkaline Phosphatase 29(L) 38 - 126 U/L 02/16/2024 4:44 PM CDT [facility] Aspartate Aminotransferase 29 17 - 59 U/L 02/16/2024 4:44 PM CDT [facility] Alanine Aminotransferase 21 <50 U/L 02/16/2024 4:44 PM CDT [facility] Glucose 87 74 - 100 mg/dL 02/16/2024 4:44 PM CDT [facility] Blood Urea nitrogen 23(H) 9 - 20 mg/dL 02/16/2024 4:44 PM CDT [facility] Creatinine 1.13 0.66 - 1.25 mg/dL 02/16/2024 4:44 PM CDT [facility] Protein, Total 7.6 6.3 - 8.2 g/dL 02/16/2024 4:44 PM CDT [facility] Albumin 4.7 3.5 - 5.0 g/dL 02/16/2024 4:44 PM T [facility] Bilirubin, Total 0.7 0.2 - 1.3 mg/dL 02/16/2024 4:44 PM T [facility] Globulin 2.9 1.4 - 4.8 g/dL 02/16/2024 4:44 PM CDT [facility] Anion Gap 5 5 - 15 mmol/L 02/16/2024 4:44 PM T [facility] Glomerular Filtration Rate >60 >60 mL/min/1. 73 m*2 02/16/2024 4:44 PM T [facility] Comment:This calculation use s CKD-EPI 2020 equation; it has not been validated in women. Blood BLOOD SPECIMEN / Unknown Venipuncture / Unknown 02/16/2024 4:11 PM CDT 02/16/2024 4:11 PM CDT Jb Van MD EC CHEMISTRY ORDERABLES Final Result [address] [phone] * MICROALBUMIN/CREATININE RATIO, URINE (02/16/2024 4:11 PM CDT) Urine Creatinine, Random 75.0 No Established Reference Range mg/dL 02/17/2024 12:01 AM [facility] Urine Microalbumin <6.0 <=16.7 mg/L 02/17/2024 12:01 AM [facility] Urine Microalbumin/Cre atinine Ratio 02/17/2024 12:01 AM [facility] Comment:MALB/CREAT Urine rat io not calculated due to urine microalbumin and/or urine creatinine result(s) are outside of the linearity of the instrument. Urine VOIDED URINE SPECIMEN / Unknown Non-blood collection / Unknown 02/16/2024 4:11 PM CDT 02/16/2024 4:11 PM CDT Jb Van MD EC URINE ORDERABLES Final Res ult Performing Organization Address [facility] Co de Phone Number [facility] [address] [place], [place] [id number] [place] [address] * HEMOGLOBIN A1C (02/16/2024 4:11 PM CDT) Hemoglobin A1C 5.6 4.8 - 5.6 % 02/16/2024 4:33 PM CDT [facility] Blood BLOOD SPECIMEN / Unknown Venipuncture / Unknown 02/16/2024 4:11 PM CDT 02/16/2024 4:11 PM CDT Narrative [facility] - 02/16/2024 4:33 PM CDT 5.7-6.4%: Increased risk for diabetes 6.5% or higher: Diagnostic for diabetes For diabetic patients, A1C goals should be discussed with clinician. Jb Van MD EC CHEMISTRY ORDERABLES ABN F inal Result Performing Organization Address [facility] Co de Phone Number [facility] [address] [place] [address] * (ABNORMAL) LIPID PANEL (02/16/2024 4:11 PM CDT) Cholesterol 217(H) 100 - 200 mg/dL 02/16/2024 11:17 PM CDT [facility] Triglycerides 133 <150 mg/dL 02/16/2024 11:17 PM CDT [facility] HDL Cholesterol, Measured 63(H) 35 - 60 mg/dL 02/16/2024 11:17 PM CDT [facility] Non-HDL Cholesterol 154(H) <130 mg/dL 02/16/2024 11:17 PM CDT [facility] LDL Cholesterol, Calculated 127 <130 mg/dL 02/16/2024 11:17 PM CDT [facility] Blood BLOOD SPECIMEN / Unknown Venipuncture / Unknown 02/16/2024 4:11 PM CDT 02/16/2024 4:11 PM CDT Narrative [facility] - 02/16/2024 11:17 PM CDT Cholesterol Reference Ranges (Adults >20 years) Desirable: <200 mg/dL Borderline High: 200-239 mg/dL High Risk: >240 mg/dL Cholesterol Reference Ranges (Children <20 years) Desirable: <169 mg/dL Borderline High: 170-199 md/dL High Risk: >200 mg/dL Triglyceride Reference Ranges Desirable: <150 mg/dL Borderline High: 150-199 mg/dL High Risk: >200 mg/dL NON-HDL Reference Ranges Desirable: < 130 mg/dL Near Desirable: 130-159 mg/dL Borderline High: 160-189 mg/dL High Risk: 190-219 mg/dL Very high Risk: >/=220 mg/dL Jb Van MD EC CHEMISTRY ORDERABLES ABN F inal Result [facility] [address] [place] [address], [facility] [phone] from Last 3 Months or Most Recently Relevant to Health Maintenance Insurance [place] [address] [facility] Commercial Address: [facility] [address] [place] [address] Care Teams Corporate Lawyer Relationship Specialty Start Date End Date Elsewhere, Pcp PCP - General 03/01/24
--- OUTSIDE RECORDS SUMMARY | 2024-06-07 13:49 | XMS_ITS | Encounter Summary ---
Author Organization 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
--- OUTSIDE RECORDS SUMMARY | 2024-06-07 13:49 | XMS_ITS | Encounter Summary ---
Author Organization [facility] [place] [facility] Address [address] [address] Phone Care Team Providers Care Tire Mounter Name Role Phone Elsewhere, Pcp Primary Care Provider Unavailabl e Encounter Details Date Type Department Care Team (Late st Contact Info) Description 03/07/2024 Scanned - Medical Reports [facility] [address] [place] [id number] Abstract, Provider, Social History Tobacco Use Types Packs/Day Years Used Date Smoking Tobacco: Former Cigarettes Smokeless Tobacco: Never Sex and Gender Information Value Date Recorded Sex Assigned at Not on file Legal 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
--- OUTSIDE RECORDS SUMMARY | 2024-06-07 13:49 | XMS_ITS | Continuity of Care Document ---
Author Name [facility] Organization [facility] Care Team Providers Care Milk Treater Name Role Phone [facility] Unavailable Unavailable Allergies, Adverse Reactions, Alerts Combined list of allergies from Department of Defense and Veterans Affairs facilities. It does not include entries that were removed or entered in error. Substance Category Reaction Severity Reaction type Status Date Reported Comments Source No Known Allergies Drug allergy (disorder) active 11/25/2007 Surinder Hunt [facility] Encounters Combined list of: 1) Encounters from Department of Veterans Affairs facilities going back up to thelast 18 months. 2) Encounters from the Department of Defense facilities going back up to 280 months. Location Location Details Encounter Type Encounter Number Reason For Visit Attending Provider ADM Date DC Date Status Disposition Source [facility] DIRECT TO [facility] FROM OTHER THAN ER OR [facility] [id number] 02/19 RETURNED TO [facility] Procedures Combined list of: 1) Procedures from Department of Veterans Affairs facilities going back up to thelast 18 months, not all [place] non-surgical procedures are included; 2) All procedures from the Department of Defense facilities. Procedure Procedure Type Code Date Perfomer Comments [facility] e IMMUNIZATION ADMINISTRATION (INCLUDES PERCUTANEOUS, INTRADERMAL, SUBCUTANEOUS, OR INTRAMUSCULAR INJECTIONS); 1 VACCINE (SINGLE OR COMBINATION VACCINE/TOXOID) 09/17/2003 [facility] UNLISTED AMBULANCE SERVICE 07/14/2003 [facility] DETERMINATION OF REFRACTIVE STATE 07/11/2003 [facility] SCREENING TEST, PURE TONE, AIR ONLY 07/11/2003 [facility] OTHER COUNSELLING 02/25/2004 [facility] OTHER GROUP THERAPY 02/25/2004 [facility] SUPPORTIVE VERBAL PSYCHOTHERAPY 02/25/2004 [facility] EXPLORATORY VERBAL PSYCHOTHERAPY 02/25/2004 [facility] CRISIS INTERVENTION 02/25/2004 [facility] BEHAVIOR THERAPY 02/25/2004 [facility] OTHER PSYCHIATRIC INTERVIEW AND EVALUATION 02/25/2004 [facility] PSYCHIATRIC MENTAL STATUS DETERMINATION 02/25/2004 [facility] PSYCHOLOGIC MENTAL STATUS DETERMINATION, NOT OTHERWISE SPECIFIED 02/25/2004 [facility] REHABILITATION, NOT ELSEWHER E CLASSIFIED 02/25/2004 [facility] OCCUPATIONAL THERAPY 02/25/2004 [facility] RECREATIONAL THERAPY 02/25/2004 [facility] GENERAL PHYSICAL EXAMINATION 02/25/2004 [facility] NEUROLOGIC EXAMINATION 02/25/2004 [facility] INTERACTIVE GROUP PSYCHOTHERAPY 02/23/2004 [facility] PSYCHIATRIC DIAGNOSTIC INTERVIEW EXAMINATION 02/21/2004 [facility] PSYCHIATRIC DIAGNOSTIC INTERVIEW EXAMINATION 02/20/2004 [facility] INDIVIDUAL PSYCHOTHERAPY, INSIGHT ORIENTED, BEHAVIOR MODIFYING AND/OR SUPPORTIVE, IN AN OFFICE OR OUTPATIENT FACILITY, APPROXIMATELY 20 TO 30 MINUTES [id number] WITH THE PATIENT 02/19/2004 [facility] ENVIRONMENTAL INTERVENTION FOR MEDICAL MGMT [...]
--- OUTSIDE RECORDS SUMMARY | 2024-06-07 13:49 | XMS_ITS | Clinical Summary ---
Author Organization [employer] [facility] Address [place], [place] [address] Care Team Providers Care Real Estate Accountant Name Role Phone Chiquita Spence MD Primary Care Provider [phone] Allergies No known active allergies Medications Medication [...] a day. 60 Tablet 06/24/2022 Active Insulin Bairoil, Disposable, 32 gauge x Use to administer insulin once daily 100 Each 06/24/2022 Active Active Problems Problem Noted Date Diagnosed Date Newly diagnosed diabetes 06/23/2022 Hyperglycemia due to diabetes mellitus 2 Lumbago 02/05/2008 [facility]INTENANCE Overview (02/07/2008): colonoscopy bone density Last Lipids: Chol: TG: HDL: LDL: GLUCOSE (mg/dL) Date Value 09/28/06 119* Encounters Date Type Department Care Team Description 05/21/2024 2:39 PM LIFTER/DRIVER - 05/21/2024 9:11 PM LIFTER/DRIVER Emergency [address] [address] Discharge Disposition: Against Medical Advice or Discontinued Care 05/21/2024 Travel from Last 3 Months Immunizations Name Administration Dates Next Due DTP [...] Sign Reading Time Taken Comments Blood Pressure 117/79 05/21/2024 5:12 PM LIFTER/DRIVER Pulse 63 05/21/2024 5:12 PM LIFTER/DRIVER Temperature 36.6 C (97.9 F) 05/21/2024 5:12 PM LIFTER/DRIVER Respiratory Rate 18 05/21/2024 5:12 PM LIFTER/DRIVER Oxygen Saturation 98% 05/21/2024 5:12 PM LIFTER/DRIVER Inhaled Oxygen Concentration - - Weight 88.5 kg (195 lb) 05/21/2024 2:45 PM LIFTER/DRIVER Height 180.3 cm (5' 11) 05/21/2024 2:45 PM LIFTER/DRIVER Body Mass Index 27.2 05/21/2024 2:45 PM LIFTER/DRIVER Plan of Treatment Upcoming Encounters Date Type Department Care Team (Late st Contact Info) Description 06/07/2024 2:00 PM LIFTER/DRIVER Ancillary Procedure [facility] [address] [place] [address] Health Maintenance Due Date Last Done Comments Tdap 1993 HIV for age 15-65 1997 Hepatitis C screening for ag e 18-79 2000 Tetanus booster 12/24/2005 12/25/1995 BMI (ht and wt on same day) for age 18+ 06/03/2017 06/03/2016 Depression screening for age 12+ 06/03/2017 06/03/2016 COVID-19 vaccine series ( season) 2024 05/25/2021, 11/20/2020, 10/23/2020 Influenza for age 9-49 03/03/2024 Lipids for age 35-44 06/24/2027 06/24/2022 Pneumococcal series for age 6-64 Aged Out No longer eligible b ased on patient's age to complete this topic Procedures Procedure Name Priority Date/Time Associated Diagnosis Comments EKG 12 LEAD STAT 05/21/2024 2:57 PM LIFTER/DRIVER LIPID PANEL Early AM 06/24/2022 9:03 AM LIFTER/DRIVER from Last 3 Months or Most Recently Relevant to Health Maintenance Results * EKG 12 LEAD (05/21/2024 2:57 PM LIFTER/DRIVER) Interpretation Sinus bradycardia with sinus arrhythmia Incomplete right bundle branch block Borderline ECG BEYOND NOW Ventricular Rate 57 BPM BEYOND NOW Atrial Rate 57 BPM BEYOND NOW P-R Interval 150 ms BEYOND NOW QRS Duration 100 ms BEYOND NOW QT 414 ms BEYOND NOW QTc 402 ms BEYOND NOW P [place] 53 degrees BEYOND NOW R [place] 3 degrees BEYOND NOW T [place] 53 degrees BEYOND NOW 05/21/2024 2:57 PM LIFTER/DRIVER 05/24/2024 9:02 AM LIFTER/DRIVER Stf Ed Triage EKG ORD Performing Organization Address City/[facility]/ZIP Co de Phone Number BEYOND NOW [place], [place] * (ABNORMAL) LIPID PANEL (06/24/2022 9:03 AM LIFTER/DRIVER) CHOLESTEROL,TOTAL 161 100 - 199 mg/dL 06/24/2022 9:40 AM LIFTER/DRIVER [facility] TRIGLYCERIDES 169(H) <150 mg/dL 06/24/2022 9:40 AM LIFTER/DRIVER [facility] HDL CHOLESTEROL 30(L) >40 mg/dL 9:40 AM LIFTER/DRIVER [facility] NON-HDL CHOLESTEROL 131 <145 mg/dl 06/24/2022 9:40 AM LIFTER/DRIVER [facility] CHOL/HDL RATIO 5.37(H) <4.50 06/24/2022 9:40 AM LIFTER/DRIVER [facility] LDL CHOLESTEROL 97 <=130 mg/dL 06/24/2022 9:40 AM LIFTER/DRIVER [facility] VLDL CHOLESTEROL 34(H) <=30 mg/dL 06/24/2022 9:40 AM LIFTER/DRIVER [facility] PROVIDER ORDERED STATUS RANDOM 06/24/2022 9:40 AM LIFTER/DRIVER [facility] Blood BLOOD SPECIMEN / Unknown Venipuncture / Unknown 06/24/2022 9:03 AM LIFTER/DRIVER 06/24/2022 9:09 AM LIFTER/DRIVER Vishal Jesus MD CHEMISTRY [facility] [address] [place] [address] from Last 3 Months or Most Recently Relevant to Health Maintenance Advance Directives * Full Code (Latest Code Status on File) Date Activated Date Inactivated Comments 06/23/2022 11:31 PM 06/24/2022 5:44 PM Question Answer Comments Code Status Discussion: Reviewed Preferences Care Teams Real Estate Accountant Relationship Specialty Start Date End Date Chiquita Spence MD [address] [place] [address] PCP - General Emergency Medicine 06/23/22
--- OUTSIDE RECORDS SUMMARY | 2024-06-07 13:49 | XMS_ITS | Encounter Summary ---
Author Organization [facility] Address [address] [address] Phone Care Team Providers Care Change Attendant Name Role Phone Elsewhere, Pcp Primary Care Provider Unavailabl e Reason for Visit * Reason Comments Refill Request Encounter Details Date Type Department Care Team (Late st Contact Info) Description 04/07/2024 Refill [facility] [address] [phone] Jb Van MD [address] [id number] Refill Request Social History Tobacco Use Types Packs/Day Years Used Date Smoking Tobacco: Former Cigarettes Smokeless Tobacco: Never Sex and Gender Information Value Date Recorded Sex Assigned at Not on file 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 2 Each [...] mellitus on insulin therapy (HCC) Instill 1 [place] nasally as needed (hypoglycemia). Reorder 07/08/2022 04/08/2024 [...] documented as of this encounter Care Teams Change Attendant Relationship Specialty Start Date End Date Elsewhere, Pcp PCP - General 03/01/24 documented as of this encounter
--- OUTSIDE RECORDS SUMMARY | 2024-06-07 13:49 | XMS_ITS | Encounter Summary ---
Author Organization [facility] [employer] [facility] Address [address] [address] Phone Care Team Providers Care Rehabilitation Services Coordinator Name Role Phone Elsewhere, Pcp Primary Care Provider Unavailabl e Reason for Visit * Reason Comments Diabetes Type 1 Encounter Details Date Type Department Care Team (Late st Contact Info) Description 03/01/2024 1:30 PM CDT Office Visit [facility] [address] [phone] Jb Van MD [address] [facility] [address] [place] [id number] Type 1 diabetes mellitus on insulin therapy (HCC) (Primary Dx) Social History Tobacco Use Types Packs/Day Years Used Date Smoking Tobacco: Former Cigarettes Smokeless Tobacco: Never Tobacco Cessation:Counseling Given: Not Answered Sex and Gender Information Value Date Recorded Sex Assigned at Not on file Legal Sex Male 2:42 PM SLUDGE 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 Type 1 diabetes mellitus on insulin therapy (HCC) (Primary) Assessment & Plan: Try to get the bolus in 10-15 min before the first bite. No other changes. Consider the pump option for [facility]. Orders: - Continuous Glucose Sensor (Dexcom G7 Sensor) Misc; 1 Device every ten days. - Accu-Chek Guide; Use to check blood sugar 4 times per day If your provider has ordered a radiology test that needs to be scheduled at any of the [facility] facilities, for your convenience and to offer you the best service, we ask that you contact the [facility] directly at [phone]. If you have an Ultrasound or DEXA order from [facility], those are performed directly by them. Please call [phone] ([place]) or [phone] ([place]) to schedule those tests. documented in this [...] from the original note were not included. [facility] DOS: 03/01/24 , 1:25 PM Referring Provider: No ref. provider found PCP: Pcp Elsewhere FINAL ASSESSMENT, PLAN and RECOMMENDATIONS: Assessment & Plan Type 1 diabetes mellitus on insulin therapy (HCC) Try to get the bolus in 10-15 min before the first bite. No other changes. Consider the pump option for exterminator. 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 he does use a CGM device, RelTel G7 Personal Blood glucose data from a [...] Two Pack) 3 MG/DOSE Powder Instill 1 [place] nasally as needed (hypoglycemia). 2 Each 3 [...] Clinical nursing note: Jb Van MD Endocrinology, [facility] documented in this encounter Miscellaneous Notes * Assessment & Plan Note - Jb Van MD - 03/01/2024 1:30 PM CDT Associated Problem(s): Type 1 diabetes mellitus on insulin therapy (HCC) Try to get the bolus in 10-15 min before the first bite. No other changes. Consider the pump option for [facility]. documented in this encounter Plan of Treatment [...] documented as of this encounter Care Teams Rehabilitation Services Coordinator Relationship Specialty Start Date End Date Elsewhere, Pcp PCP - General 03/01/24 documented as of this encounter
== END 2024-06-07 13:46 | disposition home or self-care (01) ==
LOC: RAD 13:46
PROVIDERS: PCP Emergency Medicine; Visit Provider Emergency Medicine
DX: I45.10 Unspecified right bundle-branch block (principal); I51.7 Cardiomegaly
CPT/HCPCS: 93306